=== PATIENT | male | born 1990 | race Caucasian/White ===

== ENCOUNTER 2018-10-10 10:57 | Emergency (ER) | payer BC ==
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
== END 2018-10-10 11:25 | disposition home or self-care (01) ==
LOC: MW.ED 10:57
DX: Z04.1 Encounter for examination and observation following transport accident (principal); R42 Dizziness and giddiness
CPT/HCPCS: 99283

== ENCOUNTER 2019-06-24 17:15 | Emergency (ER) | payer BC, OTHER ==
--- NOTE | 2019-06-24 17:37 | EDM.PDOC ---
ED HPI GENERAL MEDICAL PROBLEM - General Chief Complaint: Genitourinary Problem Stated Complaint: SCREENING Time Seen by Provider: 06/24/19 17:20 Source of Information: Reports: Patient History Limitations: Reports: No Limitations - History of Present Illness INITIAL COMMENTS - FREE TEXT/NARRATIVE: HISTORY AND PHYSICAL: History of present illness: Patient is a 29-year-old male presents to the ED today with concern of screening for sexually transmitted diseases. Patient states he "has never had STD screening in the past "so desires us today. 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 Patient denies any high risk sexual encounters. Patient denies any direct blunt contact with HIV coworker. Patient denies any other symptoms or concerns. Patient denies fever, chills, chest pain, shortness of breath, or cough. Denies headache, neck stiff ness, change in vision, syncope, or near syncope. Denies nausea, vomiting, abdominal pain, diarrhea, constipation, or dysuria. Has not noted any blood in urine or stool. Patient has been eating and drinking appropriately. Review of systems: As per history of present illness and below otherwise all systems reviewed and negative. Past medical history: As per history of present illness and as reviewed below otherwise noncontributory. Surgical history: As per history of present illness and as reviewed below otherwise noncontributory. Social history: See social history for further information Family history: As per history of present illness and as reviewed below otherwise noncontributory. Physical exam: General: Patient is alert, oriented, and in no acute distress. Patient sitting comfortably on exam table. HEENT: Atraumatic, normocephalic, pupils equal and reactive bilaterally, negative for conjunctival pallor or scleral icterus, mucous membranes moist, TMs normal bilaterally, throat clear, neck supple, nontender, trachea midline. No drooling or trismus noted. No meningeal signs. No hot potato voice noted. Lungs: Clear to auscultation, breath sounds equal bilaterally, chest nontender. Heart: S1S2, regular rate and rhythm without overt murmur Abdomen: Soft, nondistended, nontender. Negative for masses or hepatosplenomegaly. Negative for costovertebral tenderness. Pelvis: Stable nontender. Genitourinary: Deferred. Rectal: Deferred. Skin: Intact, warm, dry. No lesions or rashes noted. Extremities: Atraumatic, negative for cords or calf pain. Neurovascular unremarkable. Neuro: Awake, alert, oriented. Cranial nerves II through XII unremarkable. Cerebellum unremarkable. Motor and sensory unremarkable throughout. Exam nonfocal. Notes: Discussed the importance for follow-up with a primary care provider. Also discussed the hip he desires full STD screening can go to [facility]. Voices understanding and is agreeable to plan of care. Denies any further questions or concerns at this time. Diagnostics: Gonorrhea and chlamydia Therapeutics: None Prescription: None Impression: Medical screening exam Plan: 1. If you desire full STD screening, you can go to [facility]. The phone number and address has been provided above for you 2. Follow-up with her primary care provider as discussed. Return to the ED as needed and as discussed. Definitive disposition and diagnosis as appropriate pending reevaluation and review of above. - Related Data Allergies Allergy/AdvReac Type Severity Reaction Status Date / Time No Known Allergies Allergy Verified 06/24/19 17:24 Home Meds: Home Meds . [No Known Home Meds] 10/10/18 [History] Past Medical History - Past Health History Medical/Surgical History: Denies Medical/Surgical History Social & Family History - Family History Family Medical History: Noncontributory - Tobacco Use Smoking Status *Q: Never Smoker - Recreational Drug Use Recreational Drug Use: No ED ROS GENERAL - Review of Systems Review Of Systems: ROS reveals no pertinent complaints other than HPI. ED EXAM, GENERAL - Physical Exam Exam: See Below (see Dictation) Course - Vital Signs Last Recorded V/S: Last Vital Signs Temp 97.0 F 06/24/19 17:22 Pulse 115 H 06/24/19 17:22 Resp 18 06/24/19 17:22 BP 158/102 H 06/24/19 17:22 Pulse Ox 98 06/24/19 17:22 - Orders/Labs/Meds Orders: Active Orders 24 hr Category Date Time Status CHLAMYDIA AND GONORRHEA BY [facility] Stat Lab 06/24/19 17:34 Ordered Departure - Departure Time of Disposition: 17:35 Disposition: Home, Self-Care 01 Clinical Impression: Encounter for medical screening examination - Discharge Information Referrals: PCP,Not In Area [Primary Care Provider] - Additional Instructions: The following information is given to patients seen in the emergency department who are being discharged to home. This information is to outline your options for follow-up care. We provide all patients seen in our emergency department with a follow-up referral. The need for follow-up, as well as the timing and circumstances, are variable depending upon the specifics of your emergency department visit. If you don't have a primary care physician on staff, we will provide you with a referral. We always advise you to contact your personal physician following an emergency department visit to inform them of the circumstance of the visit and for follow-up with them and/or the need for any referrals to a consulting specialist. The emergency department will also refer you to a specialist when appropriate. This referral assures that you have the opportunity for follow-up care with a specialist. All of these measure are taken in an effort to provide you with optimal care, which includes your follow-up. Under all circumstances we always encourage you to contact your private physician who remains a resource for coordinating your care. When calling for follow-up care, please make the office aware that this follow-up is from your recent emergency room visit. If for any reason you are refused follow-up, please contact the [facility] Emergency Department at and asked to speak to the emergency department charge nurse. [facility] [address] [place] [id number] [facility] [address] [place] [address] [facility] [address] [place] [address] 1. If you desire full STD screening, you can go to [facility]. The phone number and address has been provided above for you 2. Follow-up with her primary care provider as discussed. Return to the ED as needed and as discussed. - My Orders Last 24 Hours: My Active Orders 06/24/19 17:34 CHLAMYDIA AND GONORRHEA BY [facility] Stat - Assessment/Plan Last 24 Hours: My Active Orders 06/24/19 17:34 CHLAMYDIA AND GONORRHEA BY [facility] Stat
== END 2019-06-24 18:07 | disposition home or self-care (01) ==
LOC: MW.ED 17:15
DX: Z11.3 Encounter for screening for infections with a predominantly sexual mode of transmission (principal)
CPT/HCPCS: 87491; 87591; 99282

== ENCOUNTER 2020-07-13 22:29 | Emergency (ER) | payer BC ==
[2020-07-13] MEDS ORDERED: Alum Hydrox/Mag Hydrox/Simeth 15 ML, Lidocaine 2% 5 ML PO ONE ×2 (23:12)
--- NOTE | 2020-07-13 23:16 | EDM.PDOC ---
ED HPI GENERAL MEDICAL PROBLEM - General Chief Complaint: General Stated Complaint: HICCUPS, ACID REFLUX Time Seen by Provider: 07/13/20 22:46 - History of Present Illness INITIAL COMMENTS - FREE TEXT/NARRATIVE: 30-year-old male with no past medical history who is presenting with epigastric discomfort hiccups and emesis. Patient reports that for the last 3 months he has had severe epigastric discomfort after eating it is a burning sensation that often radiates into his chest and is associated with prolonged hiccups that eventually cease after he vomits. He has had no change in bowel function he has no blood in the emesis he has had no melena or blood in his stool. He denies any other abdominal pain he denies any fever. He has been seen in an ER twice previously he was given Thorazine 1 time for his hiccups he was subsequently given a prescription for Reglan as well as omeprazole. He states that these are not helping. He does not have a primary care provider. He has no prior history of surgeries or other medical problems. His symptoms worsen a few minutes after eating anything. - Related Data Allergies Allergy/AdvReac Type Severity Reaction Status Date / Time No Known Allergies Allergy Verified 07/13/20 22:50 Home Meds: Home Meds Metoclopramide [Reglan] 10 mg 07/13/20 [History] Omeprazole 07/13/20 [History] Sucralfate [Carafate] 1 gm PO TID 14 Days #42 tablet 07/13/20 [Rx] Past Medical History - Past Health History Medical/Surgical History: Denies Medical/Surgical History - Infectious Disease History Infectious Disease History: Reports: Chicken Pox Social & Family History - Family History Family Medical History: No Pertinent Family History - Tobacco Use Tobacco Use Status *Q: Never Tobacco User - Caffeine Use Caffeine Use: Reports: Coffee - Recreational Drug Use Recreational Drug Use: No ED ROS GENERAL - Review of Systems Review Of Systems: See Below Free Text/Narrative/Comment: General: No fever. Skin: No rash. Eyes: No vision problems. ENT: No sore throat. Neck: No neck stiffness. Respiratory: No shortness of breath. Cardiac: No chest pain. Gastrointestinal: Per HPI Urinary: No dysuria. Musculoskeletal: No myalgias/arthralgias. Neurologic: No headache. ED EXAM, GENERAL - Physical Exam Exam: See Below Free Text/Narrative:: General Appearance: No acute distress, appears comfortable Skin: No rash HEENT: Normocephalic/atraumatic, sclera anicteric, mucous membranes moist Neck: Normal range of motion Chest and Lungs: Bilateral breath sounds, clear to auscultation Cardiovascular: Regular rate and rhythm, no murmur Abdomen: Soft, non-tender Back: Normal Musculoskeletal: No edema or tenderness Neurologic: Awake, alert, no obvious deficits, moving all extremities Psychiatric: Appropriate, cooperative Course - Vital Signs Last Recorded V/S: Last Vital Signs Temp 97.9 F 07/13/20 22:47 Pulse 84 07/13/20 22:47 Resp 16 07/13/20 22:47 BP 136/88 07/13/20 22:47 Pulse Ox 97 07/13/20 22:47 - Orders/Labs/Meds Meds: Medications Discontinued Medications Generic Name Dose Route Start Last Admin Trade Name Freq PRN Reason Stop Dose Admin Al Hydroxide/Mg Hydroxide 15 0 ml 07/13/20 23:12 ml/ Lidocaine HCl 5 ml PO 07/13/20 23:13 ONETIME ONE Departure - Departure Time of Disposition: 23:13 Disposition: Home, Self-Care 01 Condition: Good Clinical Impression: Dyspepsia - Discharge Information *PRESCRIPTION DRUG MONITORING PROGRAM REVIEWED*: Not Applicable *COPY OF PRESCRIPTION DRUG MONITORING REPORT IN PATIENT [place]: Not Applicable Prescriptions: Sucralfate [Carafate] 1 gm PO TID 14 Days #42 tablet Instructions: Food Choices for Gastroesophageal Reflux Disease, Adult, Gastroesophageal Reflux Disease, Adult Forms: ED Department Discharge Additional Instructions: [facility] [address] [place] [id number] [address] I encourage you to take the omeprazole tablet 30 to 45 minutes before breakfast and 30 to 45 minutes before dinner every day. You will then take the Carafate just a few minutes before any major meal such as breakfast lunch and dinner. I encourage you to follow-up at one of the primary care clinics. You would likely benefit from H. pylori testing and, if you were found to have this treatment with antibiotics. If your symptoms worsen if you develop severe chest pain or any other new symptoms that concern you encourage you to return to the ER. The following information is given to patients seen in the emergency department who are being discharged to home. This information is to outline your options for follow-up care. We provide all patients seen in our emergency department with a follow-up referral. The need for follow-up, as well as the timing and circumstances, are variable depending upon the specifics of your emergency department visit. If you don't have a primary care physician on staff, we will provide you with a referral. We always advise you to contact your personal physician following an emergency department visit to inform them of the circumstance of the visit and for follow-up with them and/or the need for any referrals to a consulting specialist. The emergency department will also refer you to a specialist when appropriate. This referral assures that you have the opportunity for follow-up care with a specialist. All of these measure are taken in an effort to provide you with optimal care, which includes your follow-up. Under all circumstances we always encourage you to contact your private hysician who remains a resource for coordinating your care. When calling for follow-up care, please make the office aware that this follow-up is from your recent emergency room visit. If for any reason you are refused follow-up, please contact the [facility] Emergency Department at and asked to speak to the emergency department charge nurse. Sepsis Event Note (ED) - Evaluation Sepsis Screening Result: No Definite Risk - Focused Exam Vital Signs: Vital Signs Temp Pulse Resp BP Pulse Ox 07/13/20 22:47 97.9 F 84 16 136/88 97 - Assessment/Plan Assessment:: 30-year-old male presented with signs and symptoms that are most consistent with severe GERD. Multiple other etiologies considered. There is no exertional component to this there is no chest pain component there is nothing that suggest ACS. Biliary pathology considered but the patient has symptoms immediately after eating and he has no findings in the right upper quadrant on exam. SBO considered but the patient continues to tolerate food and he has had no change in stool. There is no findings that would suggest severe GI bleeding. He has no findings that would be concerning for perforation. I do think he would benefit from H. pylori testing but this is not something that we can provide him with today. We discussed following up with the primary care clinics we discussed adding the Carafate and taking the omeprazole twice daily 30 to 45 minutes before eating. Return precautions discussed and understood. Patient given a GI cocktail here and Carafate prescription sent to the pharmacy.
== END 2020-07-13 23:25 | disposition home or self-care (01) ==
LOC: MW.ED 22:29
DX: R10.13 Epigastric pain (principal)
CPT/HCPCS: 99283; A9270

== ENCOUNTER 2021-10-04 15:12 | Emergency (ER) | payer BC, OTHER ==
[2021-10-04] MEDS ORDERED: Tetracaine HCl/PF 0.5% 4 ML Bottle EYEBOTH ONE (15:15)
[2021-10-04] MEDS ORDERED: Erythromycin Base 0.5% Ophth Oint 1 GM Tube EYELF ONE (15:31)
== END 2021-10-04 15:52 | disposition home or self-care (01) ==
LOC: MW.ED 15:12
DX: S05.02XA Injury of conjunctiva and corneal abrasion without foreign body, left eye, initial encounter (principal); Z79.899 Other long term (current) drug therapy; Z86.16 Personal history of COVID-19; W22.09XA Striking against other stationary object, initial encounter
CPT/HCPCS: 99283; A9270

== ENCOUNTER 2024-05-16 21:52 | Emergency (ER) | payer SELFPAY ==
[2024-05-16] MEDS: Tetracaine HCl/PF 0.5% 4 ML Bottle EYEBOTH ONE (22:37)
[2024-05-16] MEDS: Erythromycin Base 0.5% Ophth Oint 1 GM Tube EYELF ONE (23:12)
== END 2024-05-16 23:15 | disposition home or self-care (01) ==
LOC: MW.ED 21:52
DX: T15.92XA Foreign body on external eye, part unspecified, left eye, initial encounter (principal); W44.8XXA Other foreign body entering into or through a natural orifice, initial encounter; Z75.8 Other problems related to medical facilities and other health care
CPT/HCPCS: 99283; A9270; J3490